=== PATIENT | male | born 1995 | race Caucasian/White ===

== ENCOUNTER 2017-01-19 21:02 | Emergency (ER) | payer OTHER ==
[2017-01-19 22:07] VITALS: BP 120/59
== END 2017-01-19 22:08 | disposition other institution (70) ==
LOC: ED 21:02
DX: Z02.89 Encounter for other administrative examinations (principal)

== ENCOUNTER 2020-09-20 06:56 | Emergency (ER) | payer MEDICAID ==
[~2020-09-20] VITALS: Ht 177.8 cm; Wt 64.9 kg
[2020-09-20 07:11] VITALS: Ht 177.8 cm; Wt 64.9 kg
[2020-09-20 09:09] VITALS: BP 122/64
== END 2020-09-20 09:09 | disposition home or self-care (01) ==
LOC: ED 06:56
DX: S01.01XA Laceration without foreign body of scalp, initial encounter (principal); I50.9 Heart failure, unspecified; Y04.8XXA Assault by other bodily force, initial encounter; Y93.89 Activity, other specified; Y92.89 Other specified places as the place of occurrence of the external cause; Y99.8 Other external cause status